=== PATIENT | female | born 1975 | race Caucasian/White ===

== ENCOUNTER 2017-08-17 09:35 | Emergency (ER) | payer OTHER ==
[~2017-08-17] VITALS: Ht 165.1 cm; Wt 97.1 kg
--- OUTSIDE RECORDS SUMMARY | 2017-08-17 09:38 | XMS REPORT | Clinical Summary ---
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 Disp. Refills Start End Date Status Date FLUoxetine (PROzac) 20 MG Take 60 mg by mouth every 2 07/05/19 Active capsule morning. 18 lamoTRIgine (LaMICtal) Take 200 mg by mouth 2 07/05/19 Active 200 MG tablet daily. 18 triamterene-hydrochloroth Take 1 capsule by mouth 5 07/05/19 Active iazid (DYAZIDE) 37.5-25 every morning. 18 mg per capsule valACYclovir (VALTREX) Take 1 tablet (1,000 mg 30 tablet 6 07/29/19 Active 1000 MG total) by mouth daily. 18 tabletIndications: Herpes simplex infection of genitourinary system valACYclovir (VALTREX) TAKE 1 TABLET BY ORAL 6 06/07/20 07/06/19 Discontin 1000 MG tablet ROUTE DAILY 17 18 ued valACYclovir (VALTREX) Take 1 tablet (1,000 mg 30 tablet 0 07/06/19 07/29/19 Discontin 1000 MG tablet total) by mouth daily. 18 18 ued Active Problems Not on file Encounters Date Type Specialty Care Team Description 08/04/2017 Ancillary Obstetrics and Gynecology Diandra Ochoa MD Screening breast Orders examination 08/04/2017 Ancillary Obstetrics and Gynecology Diandra Ocoha MD Screening breast Orders examination 08/03/2017 Hospital Radiology Diandra Ochoa MD Screening breast Encounter examination 08/03/2017 Ancillary Obstetrics and Gynecology Diandra Ochoa MD Screening breast Orders examination 07/29/2017 Office Visit Obstetrics and Gynecology Diandra Ochoa MD Screening breast examination (Primary Dx); Cervical smear, as part of routine gynecological examination; Herpes simplex infection of genitourinary system 07/06/2017 Refill Obstetrics and Gynecology Audelia Sewell MA after 08/16/2016 Family History Medical History Relation Name Comments Cancer Father Hypertension Father Breast cancer Maternal Grandmother Breast cancer Mother Hypertension Mother Breast cancer Sister Relation Name Status Comments Father Maternal Grandmother Mother Sister Social History Tobacco Use Types Packs/Day Years Used Date Never Smoker Smokeless Tobacco: Never Used Alcohol Use Drinks/Week oz/Week Comments Yes Sex Assigned at Date Recorded Not on file Last Filed Vital Signs Vital Sign Reading Time Taken Blood Pressure 129/89 07/29/2017 9:00 AM MEDICAL SUPERVISOR Pulse 80 07/29/2017 9:00 AM MEDICAL SUPERVISOR Temperature 37.1 C (98.8 F) 07/29/2017 9:00 AM MEDICAL SUPERVISOR Respiratory Rate - - Oxygen Saturation - - Inhaled Oxygen - - Concentration Weight 97.7 kg (215 lb 6.4 oz) 07/29/2017 9:00 AM MEDICAL SUPERVISOR Height - - Body Mass Index - - Plan of Treatment Health Maintenance Due Date Last Done Comments PAP SMEAR 1994 INFLUENZA VACCINE 01/26/2017 Results * Mammo Screening w Cad Bilateral (08/03/2017 5:58 PM) Specimen Performing Laboratory [facility] [id number] [place] [address] Narrative EXAMINATION:MAMMO SCREENING W CAD BILATERAL Computer-assisted detection was utilized in the interpretation of this exam. COMPARISONS:None available. INDICATION:42-year-old female with a strong family history of breast cancer in her mother at the age of 60 and sister at the age of 50. She also has a history of bilateral mastopexy. FINDINGS: There are scattered fibroglandular tissues. There are benign-appearing punctate calcifications in a scattered distribution in both breasts. No suspicious asymmetry, mass or architectural distortion in either breast. IMPRESSION: No mammographic evidence of malignancy. RECOMMENDATION: Annual mammography and correlation with physical examination. However, given the family history of breast cancer, genetic risk assessment for possible adjuvant screening with contrast enhanced breast MRI should be considered. BI-RADS 2: BENIGN DWS01 * HPV mRNA E6/E7 (07/29/2017 9:20 AM) Component Value Ref Range HPV mRNA e6/e7 Not Detected Not Detected Comment: This test was performed using the APTIMA HPV Assay ([employer] This assay detects E6/E7 viral messenger RNA (mRNA) from 14 high-risk HPV types (16,18,31,33,35,39,45,51,52,56,58,59,66,68). Specimen Performing Laboratory [facility] * THINPREP TIS PAP (07/29/2017 9:20 AM) Component Value Ref Range Clinical information None given Date of last menstrual NONE GIVEN period Prev. pap: NONE GIVEN Prev. bx: NONE GIVEN Source None given Statement of adequacy Comment: Satisfactory for evaluation. Endocervical/transformation zone component absent. Age and/or menstrual status not provided Interpretation/result: Comment: Negative for intraepithelial lesion or malignancy. Comment Comment: This Pap test has been evaluated with computer assisted technology. Keyboard Action Assembler Comment: BenignoXJ, CT(ASCP) CT screening location: [place] [address] [address], [place] [address] Specimen Performing Laboratory [facility] after 08/16/2016 Insurance Payer Benefit Subscriber ID Type Phone Address Plan / Group AETNA AETNA xxxxxxxxxx HMO HMO,POS,EP O, [facility]
--- OUTSIDE RECORDS SUMMARY | 2017-08-17 09:38 | XMS REPORT | Summary of Care ---
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 Active LaMICtal 200 MG Oral Tablet TAKE 1 TABLET DAILY. * Refills: 0 R.N. Active Triamterene-HCTZ 37.5-25 MG Oral Capsule TAKE 1 CAPSULE DAILY * Refills: 0 R.N. Active Linzess 290 MCG Oral Capsule * Refills: 0 R.N. Active ValACYclovir HCl - 1 GM Oral Tablet * Refills: 0 R.N. Active Allergies and Adverse Reactions Name Dates Details Iodine SOLN (Allergy) Status: Active Past Medical History Name Dates Details History of kidney disease (V13.09, Z87.448) Status: Resolved Procedures Procedure Dates Details Physical Therapy Date: 22-Jul-2017 History of gallbladder surgery Completed History of appendectomy Completed History of hysterectomy Completed History of breast reduction Completed Immunization Name Dates Details Immunizations not documented Family History Name Dates Details Family history of Allergy (995.3, T78.40XA) Comments: Family History Status: Active Family history of asthma (V17.5, Z82.5) Comments: Family History Status: Active Social History Name Dates Details - Status: Name Dates Details Never smoker Vital Signs Date Test Result Details [id number] BP Systolic 118 mm[Hg] Status: Comments: Location: LUE; Position: Sitting BP Diastolic 83 mm[Hg] Status: Comments: Location: LUE; Position: Sitting Height 65 in Status: Weight 212.4375 lb Status: Body Mass Index Calculated 35.35 kg/m2 Status: Body Surface Area Calculated 2.03 m2 Status: Heart Rate 86 /min Status: Respiration Rate 16 /min Status: [id number] BP Systolic 150 mm[Hg] Status: BP Diastolic 93 mm[Hg] Status: Height 65 in Status: Weight 214.375 lb Status: Body Mass Index Calculated 35.67 kg/m2 Status: Body Surface Area Calculated 2.04 m2 Status: Heart Rate 86 /min Status: Results Date Description Value Details [id number] Tobacco Use Screening Completed DONE Plan of Care Name Dates Details Planned Observations Planned Goals not documented Interventions Provided Labs/Procedures/Imaging* Physical Therapy; To Be Done: 22 Jul 2017 Follow-ups/Referrals* Neurology (headache clinic) Referral; To Be Done: 22 Jul 2017 Instructions Name Dates Details Instructions not documented Encounters Appointment; YUMIKO GAMEZ M.D. Encounter Diagnosis: Problem not documented On: 06-Jul-2017 14:30 Appointment; ZAN MILLER Encounter Diagnosis: Problem not documented On: 20-Jul-2017 10:00 Appointment; YUMIKO GAMEZ M.D. Encounter Diagnosis: Problem not documented On: 22-Jul-2017 10:30
[2017-08-17] MEDS ORDERED: ALBUTEROL/IPRATROPIUM 3 ML NEB NEB ONE (10:15)
--- NOTE | 2017-08-17 10:26 | Diagnostic Imaging Report ---
PROCEDURE: Frontal and lateral views of the chest. COMPARISON: None. INDICATIONS: SHORTNESS OF BREATH FINDINGS: Lines/tubes: None. Lungs: The lungs are well inflated and clear. There is no evidence of pneumonia or pulmonary edema. Pleura: There is no pleural effusion or pneumothorax. Heart and mediastinum: The heart and the mediastinum are normal. Bones: No acute bony abnormality. IMPRESSION: No acute radiographic abnormality. Dictated by: Henry Nguyen M.D. on 08/17/2017 at 10:26 Electronically approved by: Henry Nguyen M.D. on 08/17/2017 at 10:26
[2017-08-17] MEDS ORDERED: PREDNISONE20 MG PO (11:33)
[2017-08-17] MEDS ORDERED: ALBUTEROL0.63 MG/3 NEB (11:33)
[2017-08-17] MEDS ORDERED: COMP-AIR NEBUL1 EACH (11:33)
[2017-08-17] MEDS ORDERED: COMPACT COMPRE1 EACH (11:33)
[2017-08-17] MEDS ORDERED: HYDROCODONE/CHLORPHENIRAMINE 5 ML LIQCR PO PRN ×2 (12:45→13:15)
== END 2017-08-17 12:56 | disposition home or self-care (01) ==
LOC: ER 09:35
DX: R06.2 Wheezing (principal); J00 Acute nasopharyngitis [common cold]; R06.00 Dyspnea, unspecified
CPT/HCPCS: 71046; 94640; 99284